=== PATIENT | male | born 1980 | race African-American/Black ===

== ENCOUNTER 2020-02-22 15:16 | Emergency (ER) | payer MEDICAID ==
[~2020-02-22] VITALS: Ht 180.3 cm; Wt 150.0 kg
[2020-02-22] MEDS ORDERED: FAMOTIDINE 20MG/2ML VIAL IV STA (17:29)
[2020-02-22] MEDS ORDERED: KETOROLAC 30MG/ML VIAL IV STA (17:29)
[2020-02-22] MEDS ORDERED: SODIUM CHLORIDE 0.9% 1,000 ML IV ONE (17:30)
[2020-02-22 18:03] LABS: BASOPHILS % 0.5 % (0.0-2.0); EOSINOPHILS % 1.6 % (0.0-5.0); HEMATOCRIT. 48.4 % (42.0-52.0); HEMOGLOBIN. 16.8 g/dL (14.0-18.0); LYMPHOCYTES % 30.4 % (20.0-50.0); MEAN CORPUSCULAR HEMOGLOBIN 30.1 pg (28.0-32.0); MEAN CORPUSCULAR VOLUME 86.6 fL (80.0-94.0); MONOCYTES % 9.6 % (2.0-8.0); NEUTROPHILS % 57.9 % (40.0-76.0); PLATELET 248 x1000/uL (130-400); RED BLOOD CELL COUNT 5.59 mill/uL (4.7-6.1); RED CELL DISTRIBUTION WIDTH 14.3 % (11.6-14.6)
[2020-02-22 18:06] LABS: CHLORIDE 96 mEq/L (98-107)
[2020-02-22 18:10] LABS: ETHANOL BLOOD < 10 mg/dL
[2020-02-22] MEDS ORDERED: KCL 10MEQ/50ML PREMIX 50 ML IV ONE (18:15)
[2020-02-22] MEDS ORDERED: POTASSIUM CHLORIDE 20MEQ TABLET SR PO ONE (18:15)
[2020-02-22 20:09] LABS: *BENZODIAZEPINES SCREEN URINE NEGATIVE (NEGATIVE); *COCAINE SCREEN URINE NEGATIVE (NEGATIVE); METHADONE URINE SCREEN NEGATIVE (NEGATIVE)
[2020-02-22 20:10] LABS: *AMPHETAMINES SCREEN URINE NEGATIVE (NEGATIVE); *BARBITURATES SCREEN URINE NEGATIVE (NEGATIVE); CANNABINOID URINE SCREEN NEGATIVE (NEGATIVE); OPIATES URINE SCREEN NEGATIVE (NEGATIVE); PHENCYCLIDINE URINE SCREEN NEGATIVE (NEGATIVE)
[2020-02-22 21:42] VITALS: BP 128/82
== END 2020-02-22 21:43 | disposition home or self-care (01) ==
LOC: ER 15:16
DX: R10.0 Acute abdomen (principal); R51.9 Headache, unspecified; K82.8 Other specified diseases of gallbladder; I10 Essential (primary) hypertension; E87.6 Hypokalemia
CPT/HCPCS: 36415; 71045; 76705; 80053; 80305; 80320; 83690; 83880; 84484; 85025; 93005; 96365; 96375; 99285; J1885; J3480; J3490; J7030; G0480

== ENCOUNTER 2020-03-24 13:23 | Inpatient (IN) | payer MEDICAID ==
[~2020-03-24] VITALS: Ht 195.6 cm; Wt 136.1 kg
[2020-03-24] MEDS ORDERED: ONDANSETRON HCL 4MG/2ML INJ IV ONE ×2 (14:00→16:30)
[2020-03-24] MEDS ORDERED: SODIUM CHLORIDE 0.9% 1,000 ML IV ONE ×2 (14:00→17:15)
[2020-03-24 15:11] LABS: BASOPHILS % 0.6 % (0.0-2.0); EOSINOPHILS % 0.8 % (0.0-5.0); HEMATOCRIT. 48.7 % (42.0-52.0); HEMOGLOBIN. 16.6 g/dL (14.0-18.0); LYMPHOCYTES % 17.6 % (20.0-50.0); MEAN CORPUSCULAR HEMOGLOBIN 29.6 pg (28.0-32.0); MEAN CORPUSCULAR VOLUME 86.8 fL (80.0-94.0); MEAN PLATELET VOLUME 10.1 fl (7.4-10.4); MONOCYTES % 8.9 % (2.0-8.0); NEUTROPHILS % 72.1 % (40.0-76.0); PLATELET 275 x1000/uL (130-400); RED BLOOD CELL COUNT 5.61 mill/uL (4.7-6.1); RED CELL DISTRIBUTION WIDTH 14.6 % (11.6-14.6)
[2020-03-24 15:22] LABS: CHLORIDE 94 mEq/L (98-107)
[2020-03-24] MEDS ORDERED: PANTOPRAZOLE 40MG DR TABLET PO ONE (16:15)
[2020-03-24] MEDS ORDERED: POTASSIUM CHLORIDE 20MEQ TABLET SR PO ONE (16:30)
[2020-03-24] MEDS ORDERED: METOCLOPRAMIDE HCL 10MG/2ML VIAL IV ONE (17:15)
[2020-03-24] MEDS ORDERED: MORPHINE SULFATE 2 MG/ML CPJ (NOT FOR IM USE) IV PRN (18:30)
[2020-03-24] MEDS ORDERED: ACETAMINOPHEN 325MG TABLET PO PRN (18:30)
[2020-03-24] MEDS ORDERED: ENOXAPARIN 40MG/0.4ML SYR SUBCUT SCH (18:30)
[2020-03-24] MEDS ORDERED: KCL 20MEQ/100ML PREMIX 100 ML IV ONE (18:30)
[2020-03-24] MEDS: SODIUM CHLORIDE 0.9% 1,000 ML IV SCH (19:35)
[2020-03-24] MEDS: ENOXAPARIN 30MG/0.3ML SYR SUBCUT SCH (21:47)
[2020-03-24 22:22] VITALS: BP 151/69
[2020-03-25] VITALS: BP 118/71
[2020-03-25] MEDS ORDERED: ALPR0.25 PO (01:06)
[2020-03-25] MEDS ORDERED: HYDR25TA PO (01:06)
[2020-03-25] MEDS: SODIUM CHLORIDE 0.9% 1,000 ML IV SCH ×3 (02:05→18:55)
[2020-03-25 04:00] VITALS: BP_SYST 113; BP_SYST 119; BP_DIAS 70
[2020-03-25 07:10] LABS: BASOPHILS % 0.4 % (0.0-2.0); HEMATOCRIT. 42.5 % (42.0-52.0); HEMOGLOBIN. 14.3 g/dL (14.0-18.0); LYMPHOCYTES % 13.7 % (20.0-50.0); MEAN CORPUSCULAR HEMOGLOBIN 30.1 pg (28.0-32.0); MEAN CORPUSCULAR VOLUME 89.3 fL (80.0-94.0); MEAN PLATELET VOLUME 10.1 fl (7.4-10.4); MONOCYTES % 10.6 % (2.0-8.0); NEUTROPHILS % 74.3 % (40.0-76.0); PLATELET 221 x1000/uL (130-400); RED BLOOD CELL COUNT 4.76 mill/uL (4.7-6.1); RED CELL DISTRIBUTION WIDTH 15.2 % (11.6-14.6)
[2020-03-25 07:38] LABS: CHLORIDE 103 mEq/L (98-107)
[2020-03-25 07:55] LABS: LDL CHOLESTEROL 94 mg/dL (5-100)
[2020-03-25 07:56] LABS: HDL CHOLESTEROL 26 mg/dL (40-59)
[2020-03-25 08:00] VITALS: BP 117/71
[2020-03-25] MEDS: ENOXAPARIN 30MG/0.3ML SYR SUBCUT SCH ×2 (08:59→20:54)
[2020-03-25] MEDS: ONDANSETRON HCL 4MG/2ML INJ IV PRN (08:59)
[2020-03-25] MEDS ORDERED: POTASSIUM CHLORIDE 20MEQ/PACKET PO SCH (09:00)
[2020-03-25] MEDS ORDERED: POTASSIUM CHLORIDE 20MEQ/PACKET PO NR (09:45)
[2020-03-25] MEDS ORDERED: POTASSIUM CHLORIDE INJ 40 MEQ in DEXT 5% WATER 500 ML IV SCH (11:00)
[2020-03-25 20:00] VITALS: BP 124/72
[2020-03-25] MEDS: OMEPRAZOLE 20MG CAPSULE EXTENDED RELEASE PO SCH (20:54)
[2020-03-26] VITALS: BP 113/65
[2020-03-26] MEDS: SODIUM CHLORIDE 0.9% 1,000 ML IV SCH ×3 (01:51→18:23)
[2020-03-26 04:00] VITALS: BP 122/74
[2020-03-26] MEDS: OMEPRAZOLE 20MG CAPSULE EXTENDED RELEASE PO SCH ×3 (06:30→21:47)
[2020-03-26] MEDS: ONDANSETRON HCL 4MG/2ML INJ IV PRN (06:36)
[2020-03-26 08:00] VITALS: BP 121/71
[2020-03-26] MEDS: ENOXAPARIN 30MG/0.3ML SYR SUBCUT SCH (09:40)
[2020-03-26] MEDS: POTASSIUM CHLORIDE 20MEQ TABLET SR PO NR ×2 (09:40→13:32)
[2020-03-26] MEDS ORDERED: POTASSIUM CHLORIDE INJ 40 MEQ in DEXT 5% WATER 500 ML IV NR (10:00)
[2020-03-26 10:10] LABS: BASOPHILS % 0.7 % (0.0-2.0); EOSINOPHILS % 1.4 % (0.0-5.0); HEMATOCRIT. 40.9 % (42.0-52.0); HEMOGLOBIN. 13.8 g/dL (14.0-18.0); LYMPHOCYTES % 22.7 % (20.0-50.0); MEAN CORPUSCULAR HEMOGLOBIN 29.8 pg (28.0-32.0); MEAN CORPUSCULAR VOLUME 88.5 fL (80.0-94.0); MEAN PLATELET VOLUME 10.3 fl (7.4-10.4); MONOCYTES % 11.6 % (2.0-8.0); NEUTROPHILS % 63.6 % (40.0-76.0); PLATELET 214 x1000/uL (130-400); RED BLOOD CELL COUNT 4.62 mill/uL (4.7-6.1); RED CELL DISTRIBUTION WIDTH 14.8 % (11.6-14.6)
[2020-03-26 10:23] LABS: CHLORIDE 106 mEq/L (98-107)
[2020-03-26 12:00] VITALS: BP 122/72
[2020-03-26 12:57] LABS: HEPATITIS B SURFACE ANTIGEN NEGATIVE
[2020-03-26 13:26] LABS: HEPATITIS A AB IGM NEGATIVE (NEGATIVE)
[2020-03-26] MEDS: METOCLOPRAMIDE HCL 10MG/2ML VIAL IV SCH ×3 (14:21→23:55)
[2020-03-26 16:00] VITALS: BP 122/72
[2020-03-26 20:00] VITALS: BP 119/73
[2020-03-26] MEDS: ENOXAPARIN 40MG/0.4ML SYR SUBCUT SCH (21:47)
[2020-03-27] VITALS: BP 129/71
[2020-03-27] MEDS: SODIUM CHLORIDE 0.9% 1,000 ML IV SCH ×2 (02:37→10:49)
[2020-03-27 04:00] VITALS: BP 138/79
[2020-03-27] MEDS: METOCLOPRAMIDE HCL 10MG/2ML VIAL IV SCH ×3 (05:57→18:13)
[2020-03-27] MEDS: ONDANSETRON HCL 4MG/2ML INJ IV PRN (07:11)
[2020-03-27] MEDS: OMEPRAZOLE 20MG CAPSULE EXTENDED RELEASE PO SCH ×2 (07:12→20:45)
[2020-03-27 07:32] LABS: EOSINOPHILS % 2.1 % (0.0-5.0); HEMATOCRIT. 40.1 % (42.0-52.0); HEMOGLOBIN. 13.6 g/dL (14.0-18.0); LYMPHOCYTES % 27.7 % (20.0-50.0); MEAN CORPUSCULAR HEMOGLOBIN 30.3 pg (28.0-32.0); MEAN CORPUSCULAR VOLUME 89.3 fL (80.0-94.0); MONOCYTES % 12.5 % (2.0-8.0); NEUTROPHILS % 56.7 % (40.0-76.0); PLATELET 209 x1000/uL (130-400); RED BLOOD CELL COUNT 4.49 mill/uL (4.7-6.1); RED CELL DISTRIBUTION WIDTH 14.7 % (11.6-14.6)
[2020-03-27 07:36] LABS: CHLORIDE 106 mEq/L (98-107)
[2020-03-27 07:58] LABS: PHOSPHORUS 2.7 mg/dL (2.5-4.9)
[2020-03-27 08:00] VITALS: BP 133/77
[2020-03-27] MEDS: ENOXAPARIN 40MG/0.4ML SYR SUBCUT SCH ×2 (08:49→20:46)
[2020-03-27] MEDS ORDERED: POTASSIUM CHLORIDE 20MEQ TABLET SR PO NR (09:00)
[2020-03-27 12:00] VITALS: BP 145/80
[2020-03-27 16:00] VITALS: BP 133/86
[2020-03-27 20:00] VITALS: BP 138/72
[2020-03-28] VITALS: BP 132/73
[2020-03-28] MEDS: METOCLOPRAMIDE HCL 10MG/2ML VIAL IV SCH ×4 (07:05→17:07)
[2020-03-28] MEDS: OMEPRAZOLE 20MG CAPSULE EXTENDED RELEASE PO SCH ×3 (07:06→22:27)
[2020-03-28 08:00] VITALS: BP 127/75
[2020-03-28 08:06] LABS: HIV SCREEN 4G Non Reactive (Non Reactive)
[2020-03-28] MEDS: SODIUM CHLORIDE 0.9% 1,000 ML IV SCH ×2 (08:51→17:07)
[2020-03-28] MEDS: ENOXAPARIN 40MG/0.4ML SYR SUBCUT SCH ×2 (08:51→22:35)
[2020-03-28 10:17] LABS: CHLORIDE 105 mEq/L (98-107)
[2020-03-28 10:31] LABS: BASOPHILS % 0.7 % (0.0-2.0); EOSINOPHILS % 2.6 % (0.0-5.0); HEMATOCRIT. 40.4 % (42.0-52.0); HEMOGLOBIN. 13.7 g/dL (14.0-18.0); LYMPHOCYTES % 25.1 % (20.0-50.0); MEAN CORPUSCULAR HEMOGLOBIN 30.1 pg (28.0-32.0); MEAN CORPUSCULAR VOLUME 88.8 fL (80.0-94.0); MEAN PLATELET VOLUME 10.2 fl (7.4-10.4); MONOCYTES % 11.5 % (2.0-8.0); NEUTROPHILS % 60.1 % (40.0-76.0); PLATELET 189 x1000/uL (130-400); RED BLOOD CELL COUNT 4.55 mill/uL (4.7-6.1); RED CELL DISTRIBUTION WIDTH 15.4 % (11.6-14.6)
[2020-03-28 12:00] VITALS: BP 130/76
[2020-03-28] MEDS ORDERED: POTASSIUM CHLORIDE 20MEQ/PACKET PO ONE (12:30)
[2020-03-28 16:00] VITALS: BP 139/80
[2020-03-29] MEDS: ONDANSETRON HCL 4MG/2ML INJ IV PRN (02:18)
[2020-03-29] MEDS: SODIUM CHLORIDE 0.9% 1,000 ML IV SCH ×2 (02:19→09:13)
[2020-03-29 06:25] LABS: BASOPHILS % 0.5 % (0.0-2.0); EOSINOPHILS % 2.2 % (0.0-5.0); HEMATOCRIT. 37.6 % (42.0-52.0); LYMPHOCYTES % 26.4 % (20.0-50.0); MEAN CORPUSCULAR HEMOGLOBIN 30.2 pg (28.0-32.0); MEAN CORPUSCULAR VOLUME 87.6 fL (80.0-94.0); MEAN PLATELET VOLUME 10.3 fl (7.4-10.4); MONOCYTES % 13.2 % (2.0-8.0); NEUTROPHILS % 57.7 % (40.0-76.0); PLATELET 186 x1000/uL (130-400); RED BLOOD CELL COUNT 4.29 mill/uL (4.7-6.1); RED CELL DISTRIBUTION WIDTH 14.8 % (11.6-14.6)
[2020-03-29 06:32] LABS: CHLORIDE 101 mEq/L (98-107)
[2020-03-29] MEDS: OMEPRAZOLE 20MG CAPSULE EXTENDED RELEASE PO SCH ×2 (07:01→21:00)
[2020-03-29] MEDS: METOCLOPRAMIDE HCL 10MG/2ML VIAL IV SCH ×5 (07:01→23:40)
[2020-03-29 08:00] VITALS: BP 130/82
[2020-03-29] MEDS: ENOXAPARIN 40MG/0.4ML SYR SUBCUT SCH ×2 (09:14→21:38)
[2020-03-29 12:00] VITALS: BP 125/75
[2020-03-29] MEDS ORDERED: POTASSIUM CHLORIDE INJ 40 MEQ in DEXT 5% WATER 500 ML IV NR ×2 (12:00→18:00)
[2020-03-29 16:00] VITALS: BP 130/79
[2020-03-30] VITALS: BP 117/58
[2020-03-30 04:00] VITALS: BP 113/80
[2020-03-30] MEDS: METOCLOPRAMIDE HCL 10MG/2ML VIAL IV SCH ×3 (05:26→18:01)
[2020-03-30 06:54] LABS: BASOPHILS % 0.5 % (0.0-2.0); HEMATOCRIT. 38.5 % (42.0-52.0); HEMOGLOBIN. 13.4 g/dL (14.0-18.0); LYMPHOCYTES % 24.2 % (20.0-50.0); MEAN CORPUSCULAR HEMOGLOBIN 30.2 pg (28.0-32.0); MEAN CORPUSCULAR VOLUME 87.2 fL (80.0-94.0); MEAN PLATELET VOLUME 10.5 fl (7.4-10.4); MONOCYTES % 12.7 % (2.0-8.0); NEUTROPHILS % 60.6 % (40.0-76.0); PLATELET 178 x1000/uL (130-400); RED BLOOD CELL COUNT 4.42 mill/uL (4.7-6.1); RED CELL DISTRIBUTION WIDTH 14.6 % (11.6-14.6)
[2020-03-30 07:15] LABS: CHLORIDE 101 mEq/L (98-107)
[2020-03-30] MEDS: OMEPRAZOLE 20MG CAPSULE EXTENDED RELEASE PO SCH ×3 (07:20→21:07)
[2020-03-30 08:00] VITALS: BP 133/68
[2020-03-30] MEDS: POTASSIUM CHLORIDE 20MEQ TABLET SR PO NR ×2 (09:00→10:13)
[2020-03-30] MEDS ORDERED: POTASSIUM CHLORIDE INJ 40 MEQ in DEXT 5% WATER 250 ML IV NR (10:00)
[2020-03-30] MEDS: ENOXAPARIN 40MG/0.4ML SYR SUBCUT SCH (10:16)
[2020-03-30] MEDS: POTASSIUM CHLORIDE INJ 40 MEQ in SODIUM CHLORIDE 0.9% 1,000 ML IV SCH (11:45)
[2020-03-30 12:00] VITALS: BP 132/72
[2020-03-30 16:00] VITALS: BP 148/78
[2020-03-30 20:00] VITALS: BP 124/78
[2020-03-30] MEDS: ONDANSETRON HCL 4MG/2ML INJ IV PRN (21:07)
[2020-03-30] MEDS: ENOXAPARIN 30MG/0.3ML SYR SUBCUT SCH (21:07)
[2020-03-31] VITALS: BP 116/68
[2020-03-31] MEDS: METOCLOPRAMIDE HCL 10MG/2ML VIAL IV SCH ×4 (00:25→18:00)
[2020-03-31 04:00] VITALS: BP 119/68
[2020-03-31 05:59] LABS: BASOPHILS % 0.8 % (0.0-2.0); EOSINOPHILS % 1.6 % (0.0-5.0); HEMATOCRIT. 39.7 % (42.0-52.0); HEMOGLOBIN. 13.8 g/dL (14.0-18.0); LYMPHOCYTES % 20.8 % (20.0-50.0); MEAN CORPUSCULAR HEMOGLOBIN 30.4 pg (28.0-32.0); MEAN CORPUSCULAR VOLUME 87.2 fL (80.0-94.0); MEAN PLATELET VOLUME 10.4 fl (7.4-10.4); MONOCYTES % 13.4 % (2.0-8.0); NEUTROPHILS % 63.4 % (40.0-76.0); PLATELET 176 x1000/uL (130-400); RED BLOOD CELL COUNT 4.55 mill/uL (4.7-6.1); RED CELL DISTRIBUTION WIDTH 14.7 % (11.6-14.6)
[2020-03-31 06:21] LABS: CHLORIDE 101 mEq/L (98-107)
[2020-03-31] MEDS: OMEPRAZOLE 20MG CAPSULE EXTENDED RELEASE PO SCH ×2 (06:32→06:34)
[2020-03-31 08:00] VITALS: BP 121/63
[2020-03-31] MEDS ORDERED: POTASSIUM CHLORIDE 20MEQ/PACKET PO NR ×2 (08:45→13:00)
[2020-03-31] MEDS: ONDANSETRON HCL 4MG/2ML INJ IV PRN (09:35)
[2020-03-31] MEDS: ENOXAPARIN 30MG/0.3ML SYR SUBCUT SCH (09:35)
[2020-03-31] MEDS: POTASSIUM CHLORIDE INJ 40 MEQ in SODIUM CHLORIDE 0.9% 1,000 ML IV SCH (09:35)
[2020-03-31 12:00] VITALS: BP 113/68
[2020-03-31] MEDS ORDERED: ONDA8TAB6 MT (15:37)
[2020-03-31 16:00] VITALS: BP 132/78
[2020-03-31 17:10] VITALS: BP 132/78
== END 2020-03-31 19:14 | disposition home or self-care (01) | DRG 249 ==
LOC: ER 13:23 → 6EST 18:23 → ENRESERV 21:29
PROVIDERS: ADMIT Internal Medicine; ATTEND Internal Medicine
DX: K52.9 Noninfective gastroenteritis and colitis, unspecified (principal); E87.6 Hypokalemia; K80.20 Calculus of gallbladder without cholecystitis without obstruction; N43.3 Hydrocele, unspecified; D18.03 Hemangioma of intra-abdominal structures; I10 Essential (primary) hypertension; K76.0 Fatty (change of) liver, not elsewhere classified; Q45.3 Other congenital malformations of pancreas and pancreatic duct; E78.00 Pure hypercholesterolemia, unspecified; Z20.828 Contact with and (suspected) exposure to other viral communicable diseases
CPT/HCPCS: 36415; 74176; 74181; 76700; 76870; 80048; 80053; 80061; 80076; 83735; 84100; 84132; 84443; 84484; 85025; 86705; 86709; 86803; 87340; 87389; 87426; 93005; 93976; 99285; C1893; J1650; J2405; J2765; J3480; J7030; J7060

== ENCOUNTER 2020-04-07 13:55 | Emergency (ER) | payer MEDICAID ==
[~2020-04-07] VITALS: Ht 195.6 cm; Wt 137.0 kg
[~2020-04-07 13:55] MED LIST: ALPR0.25 PO; HYDR25TA PO; ONDA8TAB6 MT
[2020-04-07] MEDS ORDERED: ONDANSETRON 4MG ODT PO STA (16:41)
[2020-04-07] MEDS ORDERED: ACETAMINOPHEN 325MG TABLET PO STA (16:41)
[2020-04-07] MEDS ORDERED: MAGNESIUM/ALUMINUM HYDROXIDE/SIMETHICONE 30ML UDC PO STA (16:41)
[2020-04-07 17:06] LABS: BASOPHILS % 0.4 % (0.0-2.0); EOSINOPHILS % 0.5 % (0.0-5.0); HEMATOCRIT. 45.9 % (42.0-52.0); HEMOGLOBIN. 15.1 g/dL (14.0-18.0); LYMPHOCYTES % 17.4 % (20.0-50.0); MEAN CORPUSCULAR VOLUME 88.3 fL (80.0-94.0); MEAN PLATELET VOLUME 9.6 fl (7.4-10.4); MONOCYTES % 8.5 % (2.0-8.0); NEUTROPHILS % 73.2 % (40.0-76.0); PLATELET 267 x1000/uL (130-400); RED CELL DISTRIBUTION WIDTH 15.4 % (11.6-14.6)
[2020-04-07 17:07] LABS: CHLORIDE 96 mEq/L (98-107)
[2020-04-07 17:11] LABS: ETHANOL BLOOD < 10 mg/dL
[2020-04-07] MEDS ORDERED: CEFTRIAXONE 1 G PREMIX 50 ML IV ONE (18:45)
[2020-04-07] MEDS ORDERED: AZITHROMYCIN 500 MG in DEXT 5% WATER 250 ML IV ONE (18:45)
[2020-04-07] MEDS ORDERED: POTASSIUM CHLORIDE 20MEQ TABLET SR PO ONE (18:45)
[2020-04-08 01:16] VITALS: BP 131/74
== END 2020-04-08 01:16 | disposition left against medical advice (07) ==
LOC: ER 13:55 → EDBEDREQ 21:26 → EDBEDREQTM 21:26 → ER 04-08 01:16 → CANBEDREQ 04-08 09:09
DX: Z03.818 Encounter for observation for suspected exposure to other biological agents ruled out (principal); K80.20 Calculus of gallbladder without cholecystitis without obstruction; J90 Pleural effusion, not elsewhere classified; R79.89 Other specified abnormal findings of blood chemistry
CPT/HCPCS: 36415; 71045; 76700; 80053; 80320; 83605; 83690; 84484; 85025; 87040; 87635; 93005; 99285; J0456; J0696; J7060; Q0162; G0480

== ENCOUNTER 2020-04-11 18:57 | Emergency (ER) | payer MEDICAID ==
[~2020-04-11] VITALS: Ht 195.6 cm; Wt 132.0 kg
[2020-04-12] MEDS ORDERED: FAMOTIDINE 20MG/2ML VIAL IV STA (04:48)
[2020-04-12] MEDS ORDERED: ONDANSETRON HCL 4MG/2ML INJ IV STA (04:48)
[2020-04-12] MEDS ORDERED: SODIUM CHLORIDE 0.9% 1,000 ML IV ONE (05:00)
[2020-04-12 05:25] LABS: BASOPHILS % 0.5 % (0.0-2.0); EOSINOPHILS % 0.6 % (0.0-5.0); HEMATOCRIT. 44.9 % (42.0-52.0); HEMOGLOBIN. 15.6 g/dL (14.0-18.0); LYMPHOCYTES % 19.5 % (20.0-50.0); MEAN CORPUSCULAR HEMOGLOBIN 30.3 pg (28.0-32.0); MONOCYTES % 10.4 % (2.0-8.0); PLATELET 356 x1000/uL (130-400); RED BLOOD CELL COUNT 5.16 mill/uL (4.7-6.1); RED CELL DISTRIBUTION WIDTH 15.4 % (11.6-14.6)
[2020-04-12 05:32] LABS: CHLORIDE 93 mEq/L (98-107)
[2020-04-12] MEDS ORDERED: POTASSIUM CHLORIDE 20MEQ TABLET SR PO NR (06:00)
[2020-04-12 09:07] VITALS: BP 130/78
== END 2020-04-12 09:09 | disposition home or self-care (01) ==
LOC: ER 18:57
DX: R11.2 Nausea with vomiting, unspecified (principal); K29.00 Acute gastritis without bleeding; E87.8 Other disorders of electrolyte and fluid balance, not elsewhere classified; E78.00 Pure hypercholesterolemia, unspecified; I10 Essential (primary) hypertension; F17.290 Nicotine dependence, other tobacco product, uncomplicated; Z79.899 Other long term (current) drug therapy
CPT/HCPCS: 36415; 80053; 83690; 85025; 96361; 96374; 96375; 99284; 99406; J2405; J3490; J7030; J7040

== ENCOUNTER 2020-05-04 16:01 | Emergency (ER) | payer MEDICAID ==
[~2020-05-04] VITALS: Ht 185.4 cm; Wt 91.0 kg
[2020-05-04] MEDS ORDERED: TRAMADOL 50MG TABLET PO ONE (16:30)
[2020-05-04] MEDS ORDERED: ONDANSETRON 4MG ODT PO ONE (16:30)
[2020-05-04 17:54] LABS: EOSINOPHILS % 0.6 % (0.0-5.0); HEMATOCRIT. 44.7 % (42.0-52.0); HEMOGLOBIN. 15.1 g/dL (14.0-18.0); LYMPHOCYTES % 18.8 % (20.0-50.0); MEAN CORPUSCULAR HEMOGLOBIN 29.5 pg (28.0-32.0); MEAN CORPUSCULAR VOLUME 87.3 fL (80.0-94.0); MEAN PLATELET VOLUME 9.5 fl (7.4-10.4); MONOCYTES % 6.6 % (2.0-8.0); PLATELET 365 x1000/uL (130-400); RED BLOOD CELL COUNT 5.11 mill/uL (4.7-6.1); RED CELL DISTRIBUTION WIDTH 15.6 % (11.6-14.6)
[2020-05-04] MEDS ORDERED: SODIUM CHLORIDE 0.9% 1000ML BAG (SEPSIS BOLUS) IV ONE (18:30)
[2020-05-04 18:46] LABS: CHLORIDE 98 mEq/L (98-107)
[2020-05-04 18:50] LABS: ETHANOL BLOOD < 10 mg/dL
[2020-05-05 03:30] VITALS: BP 136/78
== END 2020-05-05 03:45 | disposition home or self-care (01) ==
LOC: ER 16:13
DX: R10.12 Left upper quadrant pain (principal); R00.0 Tachycardia, unspecified
CPT/HCPCS: 36415; 71045; 80053; 80320; 83605; 85025; 85379; 93005; 96360; 99285; J7030; Q0162; G0480